=== PATIENT | male | born 1980 | race Caucasian/White ===

== ENCOUNTER → 2020-12-30 | Outpatient (CLI) | payer BC ==
--- NOTE | 2020-12-30 15:19 | REPVR ---
PROCEDURE INFORMATION: Exam: CT Maxillofacial Without Contrast, Sinus Exam date and time: 12/30/2020 3:00 PM Age: 40 years old Clinical indication: Pain; Other: Sinus; Additional info: Allergic rhinitis, dns, chronic pansiusitis TECHNIQUE: Imaging protocol: CT Maxillofacial without contrast. Focus on the sinuses. Radiation optimization: All CT scans at this facility use at least one of these dose optimization techniques: automated exposure control; mA and/or kV adjustment per patient size (includes targeted exams where dose is matched to clinical indication); or iterative reconstruction. COMPARISON: No relevant prior studies available. FINDINGS: Frontal sinuses: Normal. No air-fluid levels. Ethmoid air cells: Normal. No air-fluid levels. Sphenoid sinuses: Normal. No air-fluid levels. Maxillary sinuses: Minor chronic mucosal disease involves the right maxillary sinus. The left is clear. Nasal cavity/Septum: The ostiomeatal units are patent. There is mild leftward deviation of the nasal septum anteriorly. Orbital cavity: Orbits are normal. Globes are unremarkable. Bones/joints: The temporomandibular joints are normally aligned. Soft tissues: The soft tissues appear grossly unremarkable. Mastoid air cells: There is opacification of some mastoid air cells on the right. The left are clear. Brain: The visualized intracranial structures appear grossly unremarkable. IMPRESSION: 1. Minor chronic right maxillary sinusitis. No evidence for acute disease. 2. Partial right mastoid air cell opacification, of indeterminate chronicity and significance. Electronically signed by: German Porter On 12/30/2020 15:18:54 PM
--- NOTE | 2020-12-30 15:24 | REP ---
INDICATION: ALLERGIC RHINITIS, DNS, CHRONIC PANSIUSITIS COMPARISON: None. TECHNIQUE: PA and lateral. FINDINGS: The mediastinum and cardiac silhouette are normal. The lung canela are clear and without acute consolidation, effusion, or pneumothorax. The skeletal structures are intact and normal. IMPRESSION: No acute cardiopulmonary process. <Electronically signed by Jasiel Pizarro > 12/30/20 [id number]
== END ==
LOC: M RAD 14:41
PROVIDERS: ATTEND Otolaryngology
DX: J30.9 Allergic rhinitis, unspecified (principal); J34.2 Deviated nasal septum; J32.4 Chronic pansinusitis